=== PATIENT | male | born 1990 | race Caucasian/White ===

== ENCOUNTER → 2020-05-01 08:44 | Outpatient (CLI) | payer SELFPAY | END | disposition home or self-care (01) | LOC: D.US 08:30 | PROVIDERS: ATTEND Family Medicine | DX: R94.5 Abnormal results of liver function studies (principal); F10.10 Alcohol abuse, uncomplicated ==

== ENCOUNTER 2021-02-19 07:35 | Day surgery (SDC) | payer BC ==
[~2021-02-19] VITALS: Ht 182.9 cm; Wt 112.5 kg
[~2021-02-19 07:35] MED LIST: DEXILANT60 MG PO; LEVOXYL25 MCG PO; NEURONTIN800 MG PO; SEROQUEL200 MG PO; TENORMIN100 MG PO
[2021-02-19 07:49] LABS: BASOPHILS 0.6 % (0-2); EOSINOPHILS 2.4 % (0-7); HEMOGLOBIN 14.6 g/dL (13.5-17.5); IMMATURE GRANULOCYTES 0.2 % (0-5); LYMPHOCYTE ABS# 2.06 10x3/uL (1.32-3.57); MCH 32.8 pg (26.0-34.0); MCHC 35.6 g/dL (31.0-37.0); MCV 92.1 fL (80.0-100.0); MEAN PLATELET VOLUME 10.4 fL (7.4-10.4); MONOCYTES 9.2 % (2-11); NEUTROPHIL ABS# 2.23 10x3/uL (1.78-5.38); NEUTROPHILS 45.6 % (40-80); PLATELET COUNT 168 10x3/uL (130-400); RBC 4.45 10x6/uL (4.20-6.10); RDW 13.1 % (11.5-14.5); WBC 4.9 10x3/uL (4.8-10.8)
[2021-02-19 07:57] LABS: CALC OSMOLALITY 279 mosm/kg (275-300); CALCIUM 9.1 mg/dL (8.5-10.1); CARBON DIOXIDE 27.2 mmol/L (21.0-32.0); CHLORIDE - SERUM 102 mmol/L (98-107); GLUCOSE 112 mg/dL (74-106); POTASSIUM - SERUM 3.9 mmol/L (3.5-5.1); SODIUM 139 mmol/L (136-145); UREA NITROGEN 16 mg/dL (7-18); eGFR NON AFRICAN AMERICAN > 90 mL/min (90-120)
[2021-02-19 08:09] VITALS: Ht 182.9 cm; Wt 112.5 kg
[2021-02-19] MEDS ORDERED: TENORMIN50 MG (08:19)
[2021-02-19] MEDS ORDERED: NEURONTIN800 MG (08:21)
[2021-02-19] MEDS ORDERED: LEVOFLOXACIN500 MG PO (10:21)
[2021-02-19] MEDS ORDERED: HYDROCODON-ACE1 EAC7 PO (10:21)
--- NOTE | 2021-02-19 10:36 | NUR ---
PT AWAKENING, OPA OUT
--- NOTE | 2021-02-19 12:00 | NUR ---
DISCHARGE INSTRUCTIONS REVIEWED WITH PT AND MOTHER. BOTH VOICED UNDERSTANDING AND COPY OF INSTRUCTIONS GIVEN ALONG WITH ORIGINAL RX FOR [place]CO.
--- NOTE | 2021-02-19 12:15 | NUR ---
PT DISCHARGED VIA W/C, ACCOMPANIED BY LUZ DE LA PA[facility], TO [facility] WITH MOTHER DRIVING. ALL BELONGINGS WITH PT/MOTHER.
== END 2021-02-19 12:15 | disposition home or self-care (01) ==
LOC: D.OPS 07:35
PROVIDERS: ATTEND Surgery
DX: K74.60 Unspecified cirrhosis of liver (principal); K81.9 Cholecystitis, unspecified; R16.0 Hepatomegaly, not elsewhere classified; F41.0 Panic disorder [episodic paroxysmal anxiety]; Z68.33 Body mass index [BMI] 33.0-33.9, adult